=== PATIENT | male | born 1965 | race Two or more races ===

== ENCOUNTER 2021-01-22 16:45 | Emergency (ER) | payer OTHER ==
[~2021-01-22] VITALS: Ht 190.5 cm; Wt 121.1 kg
[2021-01-22] MEDS ORDERED: CRESTOR10 MG PO (19:48)
[2021-01-22] MEDS ORDERED: IRBESARTAN300 MG PO (19:48)
[2021-01-22] MEDS ORDERED: JANUMET 50-1,01 EACH PO (19:48)
[2021-01-22] MEDS ORDERED: NORFLEX100MG PO (21:26)
== END 2021-01-22 21:41 | disposition home or self-care (01) ==
LOC: ER 16:45
DX: R10.2 Pelvic and perineal pain (principal); I10 Essential (primary) hypertension; E11.9 Type 2 diabetes mellitus without complications